=== PATIENT | male | born 1955 | race Caucasian/White ===

== ENCOUNTER 2016-10-21 20:18 | Emergency (ER) | payer BC ==
[~2016-10-21] VITALS: Ht 175.3 cm; Wt 82.6 kg
[~2016-10-21 20:18] MED LIST: AMIT-46 PO
--- OUTSIDE RECORDS SUMMARY | 2016-10-21 20:23 | XMS REPORT ---
Author Author Leticia Burciaga Organization eClinicalWorks Address Unknown Phone Unavailable Care Team Providers Care Cleat Maker Name Role Phone Leticia Burciaga CP Unavailable Allergies, Adverse Reactions, Alerts Substance Reaction Event Type N.K.D.A. Info Not Available Non Drug Allergy Problems Problem Type Condition Code Onset Dates Condition Status Assessment Sprain of unspecified site of right knee, initial encounter S83.91XA Active Assessment Asplenia (congenital) Q89.01 Active Problem Asplenia (congenital) Q89.01 Active Medications Medication Code System Code Instructions Start Date End Date Status Dosage Tylenol [facility] [address]-17 325 MG Orally every 6 hrs 1 tablet as needed Amitriptyline HCl [facility] [address]-55 25 MG Orally Once a day 1 tablet at bedtime Procedures Procedure Coding System Code Date OFFICE VISIT, EST-LOW COMPLEXITY (15 MIN.) CPT-4 18381 November 15, 2015 Vital Signs Date/Time: November 15, 2015 Temperature 98.3 F Height 69.5 in Weight 189.8 lbs Blood Pressure Diastolic 83 mm Hg Blood Pressure Systolic 130 mm Hg Cardiac Monitoring Heart Rate 81 /min BMI 27.62 Index Respiratory Rate 16 /min Results No Known Results Summary Purpose eClinicalWorks Submission
--- OUTSIDE RECORDS SUMMARY | 2016-10-21 20:23 | XMS REPORT ---
Author Author Dora Brunson [facility] eClinicalWorks Address Unknown Phone Unavailable Care Team Providers Care Biometry Teacher Name Role Phone Dora Brunson Unavailable Allergies No Known Allergies Problems Problem Type Condition ICD-9 Code Onset Dates Condition Status Assessment Need for prophylactic vaccination against streptococcus pneumoniae (pneumococcus) V03.82 Active Assessment Need for prophylactic vaccination and inoculation, Influenza V04.81 Active Medications Medication Code System Code Instructions Start Date End Date Status Dosage Amitriptyline HCl [facility] [address]-29 25 MG Orally Once a day Active 1 tablet at bedtime Procedures Procedure Coding System Code Date ADMINISTRATION, 1ST IMMUNIZATION CPT-4 15739 Jun 29, 2014 PNEUMOCOCOCCAL CONJUGATE VACCINE CPT-4 76269 Jun 29, 2014 FLU VACCINE NO PRESERV 3 & > CPT-4 97850 Jun 29, 2014 OFFICE VISIT, EST-BRIEF (5 MIN.) CPT-4 22927 Jun 29, 2014 ADMINISTRATION, EA ADDL IMMUNIZATION CPT-4 88374 Jun 29, 2014 Vital Signs Date/Time: Jun 29, 2014 Height 69.5 inches Weight 191.25 lbs Temperature 98.7 F Respiratory Rate 16 per Minute Blood Pressure Diastolic 80 mm Hg Blood Pressure Systolic 120 mm Hg BMI 27.83 Index Results No Known Results Immunizations Vaccine Administration Date Influenza shot 4 y.o. and older Jun 29, 2014 Pneumo 13 (Prevnar)(child)(adult) Jun 29, 2014 Summary Purpose eClinicalWorks Submission
--- OUTSIDE RECORDS SUMMARY | 2016-10-21 20:23 | XMS REPORT ---
Author Author Dora Brunson [facility] eClinicalWorks Address Unknown Phone Unavailable Care Team Providers Care Wood Die Maker Name Role Phone Dora Brunson Unavailable Allergies No Known Allergies Problems Problem Type Condition Code Onset Dates Condition Status Problem Asplenia (congenital) Q89.01 Active Medications No Known Medications Results No Known Results Summary Purpose eClinicalWorks Submission
--- OUTSIDE RECORDS SUMMARY | 2016-10-21 20:23 | XMS REPORT | Continuity of Care Document ---
Author Author [facility] Organization [facility] Address Unknown Phone Unavailable Support Name Relationship Address Phone MORE HEALY APRN Caregiver Yuriy [place] [address] NEMESIO CHRISTOPHER MD Caregiver [facility]GERY [address] [place] [address] , [address] [place] [address] STANTON EDOUARD Next Of Kin [address] [place] [address] Insurance Providers Payer Name Policy Number Subscriber Name Relationship [facility] [id number] Diego Edouard 19 Self Advance Directives Directive Response Recorded Date/Time Ordered Resuscitation Status Full Code 02/26/14 2:06pm Problems No known problems or medical conditions. Medications Medication Dose Route Sig Days/Qty Instructions Order Date Discontinued Date Status Amitriptyline Hcl 25 Mg PO BEDTIME 07/13/10 Active Social History Social History Problem Response Recorded Date/Time Smoking Status Former smoker 03/01/2014 8:06am Chewing Tobacco Status No 02/26/2014 1:51pm Hx Substance Use No 02/26/2014 1:51pm Hx Alcohol Use No 03/01/2014 8:06am Has the pt used tobacco in the last 12 months No 03/01/2014 8:06am Hospital Discharge Instructions No hospital discharge instructions. Plan of Care No plan of care. Functional Status No functional status results. Allergies, Adverse Reactions, Alerts Allergen Type Severity Reaction Status Last Updated No Known Allergies Active 07/13/10 Immunizations Name Given Type Hx Influenza Vaccination Y FALL 2012 Historical Hx Pneumococcal Vaccination No Historical Hx Influenza Vaccination Y FALL 2012 Historical Vital Signs Acute Vital Signs Vital Response Date/Time Temperature (Fahrenheit) 97.6 deg F (96.8 - 99.1) Temperature (Calculated Celsius) 36.10919 degrees C (36.0 - 37.3) Temperature Source Temporal Pulse Rate (adult) 92 bpm (60 - 100) Respiratory Rate 16 breaths/min (10 - 20) O2 Sat by Pulse Oximetry 96 % (90 - 100) Blood Pressure 134/87 mm Hg Blood Pressure Source Automatic Cuff Height 5 ft 9 in Weight 182 lb Body Mass Index 26.0 kg/m^2 Results Test Source Date Result Interp. Ref. Range Comments Alanine Aminotransferase (ALT/SGPT) February 22, 2014 3:54pm 36 U/L N 21-72 Albumin February 22, 2014 3:54pm 4.4 G/DL N 3.5-5.0 Albumin/Globulin Ratio February 22, 2014 3:54pm 1.5 RATIO N 1.1-2.2 Alkaline Phosphatase February 22, 2014 3:54pm 86 U/L N 38-126 Anion Gap February 22, 2014 3:54pm 11 MEQ/L N 5-15 Aspartate Amino Transf (AST/SGOT) February 22, 2014 3:54pm 29 U/L N 17-59 BUN/Creatinine Ratio February 22, 2014 3:54pm 22 RATIO N 6-26 Basophils # (Auto) February 22, 2014 3:54pm 0.1 T/MM3 N 0-0.2 Basophils (%) (Auto) February 22, 2014 3:54pm 0.6 % N 0-2 Blood Urea Nitrogen February 22, 2014 3:54pm 20.0 MG/DL N 9-20 Calcium Level February 22, 2014 3:54pm 9.4 MG/DL N 8.4-10.2 Calculated Osmolality February 22, 2014 3:54pm 276 MOSM/KG N 261-280 Carbon Dioxide Level February 22, 2014 3:54pm 31 MEQ/L H 22-30 Chloride Level February 22, 2014 3:54pm 100 MEQ/L N 98-107 Creatinine February 22, 2014 3:54pm 0.9 MG/DL N 0.8-1.5 Eosinophils # (Auto) February 22, 2014 3:54pm 0.2 T/MM3 N 0-0.5 Eosinophils (%) (Auto) February 22, 2014 3:54pm 2.7 % N 0-4 Globulin February 22, 2014 3:54pm 3.0 G/DL N 2.4-3.6 Glucose Level February 22, 2014 3:54pm 98 MG/DL N 75-110 Hematocrit February 22, 2014 3:54pm 43.2 % N 41-53 Hemoglobin February 22, 2014 3:54pm 14.9 GM/DL N 13.5-17.5 Lactate Dehydrogenase February 22, 2014 3:54pm 408 U/L N 313-618 Lymphocytes # (Auto) February 22, 2014 3:54pm 2.5 T/MM3 N 1-4.8 Lymphocytes (%) (Auto) February 22, 2014 3:54pm 29.3 % N 23-45 Mean Corpuscular Hemoglobin February 22, 2014 3:54pm 31.4 UUG N 26-34 Mean Corpuscular Hemoglobin Concent February 22, 2014 3:54pm 34.5 GM/DL N 31 -37 Mean Corpuscular Volume February 22, 2014 3:54pm 91.1 UM3 N 80-100 Mean Platelet Volume February 22, 2014 3:54pm 9.0 UM3 L 9.4-12.4 Monocytes # (Auto) February 22, 2014 3:54pm 1.0 T/MM3 H 0-0.8 Monocytes (%) (Auto) February 22, 2014 3:54pm 11.8 % H 0-9.0 Neutrophils # (Auto) February 22, 2014 3:54pm 4.8 T/MM3 N 1.8-7.7 Neutrophils (%) (Auto) February 22, 2014 3:54pm 55.5 % N 33-66 Platelet Count February 22, 2014 3:54pm 361 T/MM3 N 130-400 Potassium Level February 22, 2014 3:54pm 4.4 MEQ/L N 3.6-5 RDW Standard Deviation February 22, 2014 3:54pm 44.2 FL N 36.9-50.2 Red Blood Count February 22, 2014 3:54pm 4.74 M/MM3 N 4.50-5.90 Sodium Level February 22, 2014 3:54pm 142 MEQ/L N 134-144 Total Bilirubin February 22, 2014 3:54pm 0.30 MG/DL N 0.20-1.30 Total Protein February 22, 2014 3:54pm 7.4 G/DL N 6.3-8.2 White Blood Count February 22, 2014 3:54pm 8.6 T/MM3 N 4.5-11.0 Chemistry Specimen Hemolysis February 22, 2014 3:54pm < 15 0-25 0-25: No Hemolysis.26-70: Slight Hemolysis - can falsely elevate K and Urine Protein. 71-285: Moderate Hemolysis - can falsely elevate K, Troponin I, CA 19-9, PTH, CSF GLucose, and Urine Protein, and can falsely decrease Phenytoin. 286-999: Gross Hemolysis - can falsely elevate K, Troponin I, CA 19-9, PTH, CSF Glucose, and Urine Protine, and can falsely decrease Phenytoin. Recommend specimen recollection. Lab Scanned Report February 22, 2014 5:45pm LAB TEST FORM REQUEST [id number] - Turbidity February 22, 2014 3:54pm < 20 0-20 Glomerular Filtration Rate Calc February 22, 2014 3:54pm 87 - Immature Granulocyte # (Auto) February 22, 2014 3:54pm 0.01 T/MM3 N 0.00- 0.03 Immature Granulocyte % (Auto) February 22, 2014 3:54pm 0.1 % N 0.0-0.5 Icterus Index February 22, 2014 3:54pm < 2 0-7 Name: DIEGO EDOUARD Unit #: [id number] : 1955 Sex: M Loc / Svc: MORRIS DOS: 02/24/14 Signed Report #: [id number] DIAGNOSTIC IMAGING REPORT TYPE OF EXAM: CT CHEST/ABD/PELVIS WC Dictated By: MAMIE WINSTON MD INDICATION: ITS.REASON: 172.3 CT HEAD W/WO CONTRAST: Comparison: None Technique: Axial CT images through the head were performed without and with IV contrast. Contrast: Omnipaque 300 120 mL FINDINGS: The ventricles are of normal size, shape, and contour for the patient 's age. The brainstem, cerebellum, and cerebral hemispheres have a normal morphology and CT attenuation. No hemorrhage, mass effect, mass lesions, or edema is evident. No areas of abnormal enhancement are seen. The visualized portions of the skull base, sinuses, and calvarium demonstrate no abnormality. 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 IMPRESSION: Unremarkable head CT for the patient's age, both before and after contrast. No evidence of intracranial metastatic disease. Comparison: None Technique: Axial CT images were performed through the neck, chest, abdomen and pelvis after the administration of intravenous contrast. Coronal and sagittal reformats of the neck Contrast: Omnipaque 300 120 mL Findings: Neck: There are scattered small bilateral cervical level IIA, IIB and VA lymph nodes present. None of these appears abnormally enlarged or pathologically enhancing. There is no significant asymmetry of left versus right in the size or distribution of nodes. No mucosal based mass lesions. Some artifact from dental restorations. The airway is widely patent. Thyroid gland is within normal limits. Parapharyngeal fat spaces are normal. Great vessels show no significant abnormality. Chest: The lungs are clear. No worrisome pulmonary nodule or mass. No pleural effusion or pneumothorax. The central airways are patent. The right gland is within normal limits. Scattered bilateral axillary nodes are seen but are not pathologically enlarged. Most of these demonstrate normal fatty lilly. The largest in the right axilla measures 0.8 cm short axis on axial image number 24. Heart and great vessels appear normal. Small mediastinal nodes are present, but again not abnormally enlarged. No hilar adenopathy. Abdomen/pelvis: The liver is normal. The gallbladder is decompressed. Spleen is absent. The pancreas, adrenal glands and kidneys are normal. No mesenteric or retroperitoneal adenopathy. No pelvic adenopathy. No free fluid. Bladder is within normal limits. Prostate and rectum are unremarkable. Small and large bowel show no significant abnormality. Bone windows are within normal limits. Impression: No evidence of metastatic disease in the neck, chest, abdomen or pelvis. . Procedures Procedure Status Date Provider(s) Excision of lesion completed 03/01/14 NEMESIO CHRISTOPHER MD Encounters Encounter Location Date/Time Registered [facility] 02/24/14 11:30am Registered [facility] 02/22/14 3:50pm
--- OUTSIDE RECORDS SUMMARY | 2016-10-21 20:23 | XMS REPORT | Referral Summary ---
Author Author [facility] Organization [facility] Address Unknown Phone Unavailable Care Team Providers Care Land Inspector Name Role Phone No PCP, Pt States Primary Care Physician [phone] Encounter VC Date(s): 04/14/15 - 04/14/15 [facility] [address] [place] [address] [place] [id number] Discharge Disposition: 01-Home or Self Care Attending Physician: Buster Gabriel JR, MD Admitting Physician: Buster Gabriel JR, MD Vital Signs No data available for this section Problem List No data available for this section Allergies, Adverse Reactions, Alerts No data available for this section Medications amitriptyline 25 mg oral tablet 25 mg 1 tabs, Oral, Bedtime (once a day), # 90 tabs, 0 Refill(s), Pharmacy: [facility], NEEDS TO SEE DR. GABRIEL IN JULY 2014 FOR RECHECK FOR FURTHER REFILLS., 1 tabs Oral Bedtime (once a day),x90 days Start Date: 09/29/15 Stop Date: 12/28/15 Status: Ordered Results No data available for this section Immunizations Vaccine Date Refusal Reason hepatitis A adult vaccine 04/11/09 hepatitis B adult vaccine 09/23/09 hepatitis B adult vaccine 03/11/09 hepatitis B adult vaccine 03/11/09 influenza virus vaccine, live 05/02/11 Procedures No data available for this section Social History No data available for this section Assessment and Plan Extracted from: Title: Ambulatory Patient Education Author: Buster Gabriel JR, MD Date : 04/14/15 Follow Up With: Where: When: Pt States No PCP [address] [facility] [place] [phone] Business (1) Within 3 to 5 days Comments: Follow Up With: Where: When: Buster Gabriel [address] [place] [address] Drive; [facility] [place] [address] Business (1) In 6 months 10/13/2015 Comments: Extracted from: Title: Office Visit Note Author: Buster Gabriel JR, MD Date: 04/14/15 Assessment/Plan family history of prostate cancer, 2 uncles on his mother's side History of chronic interstitial cystitis. Continue amitriptyline 25 mg at bedtime. Continue following the instructions regarding reducing intake of caffeine and highly acidic and highly spiced food. I would like to see him again in 6 months, PSA a week before next visit or to come and see sooner if having troubles with urination.
--- OUTSIDE RECORDS SUMMARY | 2016-10-21 20:23 | XMS REPORT | Continuity of Care Document ---
Author Author Siva Belcher [place], [facility] Address Unknown Phone Unavailable Payers Payer name Insurance type Covered libertarian ID Authorization(s) Unknown Problems Condition Effective Dates (start - stop) Clinical Status BPH - Asymptomatic Family history of malignant neoplasm of prostate - *Routine Chronic interstitial cystitis - *Controlled BPH - Asymptomatic Family history of malignant neoplasm of prostate - *Routine FM HX GENITAL MALIG NOS - FM HX PROSTATE MALIG - CHR INTERSTIT CYSTITIS - HYPERTONICITY OF BLADDER - BPH W URINARY OBS/LUTS - - Family History Family Member Diagnosis Age At Onset Status Unknown Social History Social History Element Description Quantity Unknown Allergies, Adverse Reactions, Alerts Substance Reaction Severity Status Unknown Medications Medication Instructions Dosage Effective Dates (start - stop) Status amitriptyline 25 mg tablet take 1 tablet (25MG) by oral route every day at bedtime 25 MG - Active Immunizations Vaccine Date Status Comments flu (split) (3 yrs or older) completed pneumo (2 yrs or older) (PPV23) completed - Completed reason: Previously Given hep B (adult) completed - Completed reason: Previously given hep B (adult) completed - Completed reason: Previously given hep A (adult) completed - Completed reason: Previously given meningococcal completed - Completed reason: Previously Given hep B (adult) completed - Completed reason: Previously given Results Test Name Date and Time Measure Units Reference Range Abnormal Flag Comments Unknown Vital Signs Date / Time: Height Weight Pulse Rate Blood Pressure Temperature /10:36:00 186.00 lbs 85 /min 135/77 mm[Hg] Procedures Procedure Date Unknown Encounters Encounter Location Date Patient Visit [facility] Patient Visit [facility] Patient Visit Conversion Patient Visit [facility] Patient Visit [facility] Advance Directives Directive Effective Date Unknown
--- OUTSIDE RECORDS SUMMARY | 2016-10-21 20:23 | XMS REPORT ---
Author Author Mat Ham Organization eClinicalWorks Address Unknown Phone Unavailable Care Team Providers Care Epic Beacon Analyst Name Role Phone Mat Ham CP Unavailable Allergies, Adverse Reactions, Alerts Substance Reaction Event Type N.K.D.A. Info Not Available Non Drug Allergy Problems Problem Type Condition Code Onset Dates Condition Status Assessment Encounter for dental examination and cleaning without abnormal findings Z01.20 Active Problem Asplenia (congenital) Q89.01 Active Medications Medication Code System Code Instructions Start Date End Date Status Dosage Amitriptyline HCl [facility] [address]-31 25 MG Orally Once a day 1 tablet at bedtime Tylenol [facility] [address]-21 325 MG Orally every 6 hrs 1 tablet as needed Procedures Procedure Coding System Code Date LTD ORAL EVALUATION - PROBLEM FOCUS CPT-4 D0140 Feb 28, 2016 [facility] [place] DENTAL PAIN-MINOR PROC CPT-4 D9110 Feb 28, 2016 INTRAORL-PERIAPICAL 1 FILM [id number] CPT-4 D0220 Feb 28, 2016 Results No Known Results Summary Purpose eClinicalWorks Submission
--- OUTSIDE RECORDS SUMMARY | 2016-10-21 20:23 | XMS REPORT ---
Author Author Mat Ham Organization eClinicalWorks Address Unknown Phone Unavailable Care Team Providers Care Public Health Microbiologist Name Role Phone Mat Ham CP Unavailable Allergies No Known Allergies Problems Problem Type Condition Code Onset Dates Condition Status Assessment Encounter for dental examination and cleaning without abnormal findings Z01.20 Active Problem Asplenia (congenital) Q89.01 Active Medications Medication Code System Code Instructions Start Date End Date Status Dosage Tylenol [facility] [address]-70 325 MG Orally every 6 hrs 1 tablet as needed Amitriptyline HCl [facility] [address]-89 25 MG Orally Once a day 1 tablet at bedtime Procedures Procedure Coding System Code Date LTD ORAL EVALUATION - PROBLEM FOCUS CPT-4 D0140 November 24, 2015 [facility] [place] DENTAL PAIN-MINOR PROC CPT-4 D9110 November 24, 2015 Results No Known Results Summary Purpose eClinicalWorks Submission
--- OUTSIDE RECORDS SUMMARY | 2016-10-21 20:23 | XMS REPORT ---
Author Author Dora Brunson [facility] Address [address] [place], [place] [id number] Care Team Providers Care Medical Care Administrator Name Role Phone Dora Brunson Unavailable [phone] PROBLEMS Type Condition ICD9-CM Code VBX88-YI Code Onset Dates Condition Status SNOMED Code Problem Asplenia (congenital) Q89.01 Active [id number] ALLERGIES Unknown Allergies SOCIAL HISTORY No smoking Hx information available PLAN OF CARE VITAL SIGNS MEDICATIONS Medication Instructions Dosage Frequency Start Date End Date Duration Status Amitriptyline HCl 25 MG Orally Once a day 1 tablet at bedtime 24h 30 day(s) Active RESULTS No Results PROCEDURES No Known procedures IMMUNIZATIONS No Known Immunizations
--- OUTSIDE RECORDS SUMMARY | 2016-10-21 20:23 | XMS REPORT | Continuity of Care Document ---
Author Author [facility] Organization [facility] Address Unknown Phone Unavailable Allergies Medications Problems Procedures Results Encounters ACCT No. Visit Date/Time Discharge Status Pt. Type Provider Facility Loc./Unit Complaint [id number] 07/02/2013 08:19:00 07/02/2013 23 :59:59 C[facility] Outpatient
--- OUTSIDE RECORDS SUMMARY | 2016-10-21 20:23 | XMS REPORT ---
Author Author Dora Brunson [facility] eClinicalWorks Address Unknown Phone Unavailable Care Team Providers Care Preform Plate Maker Name Role Phone Dora Brunson CP Unavailable Allergies, Adverse Reactions, Alerts Substance Reaction Event Type N.K.D.A. 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 Assessment Encounter for immunization Z23 Active Medications Medication Code System Code Instructions Start Date End Date Status Dosage Amitriptyline HCl [facility] [address]-49 25 MG Orally Once a day 1 tablet at bedtime Procedures Procedure Coding System Code Date ADMINISTRATION, 1ST IMMUNIZATION CPT-4 84696 May 06, 2015 FLU VACCINE NO PRESERV 3 & > CPT-4 64153 May 06, 2015 PNEUMOCOCCAL VACCINE CPT-4 39693 May 06, 2015 DUMMY CODE FOR NURSE VISIT CPT-4 DUMMY May 06, 2015 Vital Signs Date/Time: May 06, 2015 Height 69.5 in Weight 186 lbs Temperature 98.6 F Blood Pressure Diastolic 80 mm Hg Blood Pressure Systolic 120 mm Hg Cardiac Monitoring Heart Rate 70 /min BMI 27.07 Index Respiratory Rate 16 /min Results No Known Results Immunizations Vaccine Administration Date Pneumovax 23 (Adult) May 06, 2015 Influenza shot 3 y.o. and older May 06, 2015 Summary Purpose eClinicalWorks Submission
[2016-10-21 20:37] VITALS: Ht 175.3 cm; Wt 82.6 kg
--- NOTE | 2016-10-21 21:20 | ERPDOC ---
Departure Disposition Decision Date: Oct 21, 2016 Disposition Decision Time: 22:49 Disposition: 01 DISCHARGED HOME, SELF-CARE Impression Impression Impression: Primary Impression: Colitis Severity: Moderate Condition: Stable Seen By: Physician only Referrals: MORE HEALY APRN (Family) [facility] Patient Instructions: Colitis (ED) Problems/Meds/Labs Reviewed?: Yes Medications reviewed and manag: Yes Departure Forms: Return to Work/School Permit Return to Work/School Date: Oct 23, 2016 Follow up care ordered?: Yes Mental Status: Alert, Oriented Scripts Tramadol HCl (Tramadol HCl) 50 Mg Tablet 1-2 TAB PO Q6H Y for PAIN, #20 TAB Prov: AJCINTA CHAU MD 10/21/16 HPI - Abdominal Pain General Chief Complaint: Abdominal Pain Stated Complaint: ABD PAIN X 4 DAYS Time Seen by Provider: 21:19 Source: patient, family History/Exam Limitations: no limitations HPI - Abdominal Pain Initial Comments Patient is a 61-year-old male presents emergency room for evaluation of lower abdominal pain/cramping. Patient has now been going on for 4 days, waxes and wanes usually worse after eating. Patient's had fevers at home as high as 101. Patient mild nausea no vomiting, decided tonight to present to the ER for evaluation Occurred At: home Onset: Gradual, Getting worse Duration: other (4 days) Pain Scale: Now & Worst: 4/10 Location: RLQ Allergies: Coded Allergies: No Known Allergies (Unverified , 10/21/16) Past History Past Medical History Metabolic: cancer (melanoma) ENMT: sleep apnea Male: other (interstitial cystitis) Surgical History General: exploratory laparotomy (splenectomy) Vaccines Hx Influenza Vaccination: Yes (FALL 2012) Hx Pneumococcal Vaccination: No Social History Smoking Status: Never smoker Substance Use Type: does not use Alcohol Intake: none Review of Systems Constitutional Constitutional: DENIES: appetite decrease, chills, dizziness, fever, weakness Eyes Vision: DENIES: double vision, loss of visual edwards ENMT Sinuses: DENIES: congestion, rhinorrhea Cardiovascular Cardiac: DENIES: chest pain, dyspnea on exertion Pulmonary Respiratory: DENIES: cough, dyspnea, sputum, tachypnea GI Upper Abdomen: nausea, DENIES: pain, vomiting Lower Abdomen: pain, DENIES: constipation, diarrhea General: DENIES: frequency, urgency Musculoskeletal General: DENIES: cramps, pain, weakness Integumentary Skin: DENIES: color change, itching, rash Endocrine Endocrine: DENIES: heat/cold intolerance Hematologic/Lymphatic Hematologic/Lymphatic: DENIES: anemia Physical Exam General General Nourishment: well nourished, well developed General Body Habitus: well groomed Vitals and Pain First Documented Vital Signs Date Time Temp Pulse Resp B/P Pulse Ox O2 Delivery O2 Flow Rate FiO2 10/21/16 20:37 98.7 93 16 101/70 96 Room Air Weight: Kilograms: 82.600 Height (feet): 5 Height (inches): 9.00 Triage Pain Scale: RN VS reviewed by Provider: Yes Eyes (brief) Eyes Brief: found: EOMI ENMT (brief) ENMT Brief: FOUND: mucosa moist, normal dentition, NOT FOUND: nasal erythema, pharnyx erythema, tonsillar deviation Neck (brief) Neck: NOT FOUND: adenopathy, spasm, tenderness Respiratory (brief) Respiratory: FOUND: clear all edwards, equal bilaterally, NOT FOUND: rales, wheezes Cardiovascular (brief) Cardiac: FOUND: regular rate, regular rhythm Capillary Refill: <2 sec Abdomen Palpation: FOUND: McBurney's point tender, soft, tender (right lower quadrant tenderness), voluntary guarding, NOT FOUND: Obturator sign, Psoas sign, hepatomegaly, hernia, involuntary guarding, rebound, splenomegaly Auscultation: FOUND: normoactive Lymphatic (brief) Lymphatic Brief: NOT FOUND: adenopathy Musculoskeletal (brief) Musculoskeletal Brief: NOT FOUND: spasm, tenderness Integumentary (brief) Integumentary Brief: FOUND: dry, pink, warm, NOT FOUND: rash Neurologic (brief) Neurological Brief: FOUND: CN w/o gross def to obs, motor-no gross deficits, sensory-no gross deficits Psychiatric (brief) Psychiatric Brief: FOUND: alert, oriented Differential Diagnoses Considering: Appendicitis, Biliary Colic, Bowel Obstruction, Cholecystitis, Constipation, Crohn's, Diverticulitis, Gastroenteritis, IBS, Ileus, Neoplasm, Pancreatitis, Pyelonephritis, Renal Colic, Ulcer, UTI, Volvulus Progress Results/Orders Orders Procedure Category Date Status Time Iv Lock (Ed Only) EDM 10/21/16 Transmitted 21:26 Cbc W/Auto LAB 10/21/16 Complete Diff-Reflex Manual 21:26 Cmp - Comprehensive LAB 10/21/16 Complete Metabolic 21:26 Lipase LAB 10/21/16 Complete 21:26 Normal Saline (Normal PHA 10/21/16 Complete Saline Iv) 21:30 Ondansetron Inj PHA 10/21/16 Complete (Zofran) 21:30 Morphine Sulfate PHA 10/21/16 Complete (Morphine) 21:30 Ct Abd/Pelvis CT 10/21/16 Taken W/Contrast Only 21:58 Iohexol (Omnipaque) PHA 10/21/16 Complete 22:05 Normal Saline (Ns) PHA 10/21/16 Complete 22:05 Saline Flush (Iv PHA 10/21/16 Complete Flush) 22:05 UA, LAB 10/21/16 Complete Dip&Micro(Complete) & 22:21 Tramadol (Prepack) PHA 10/21/16 Complete (Ultram (Prepack)) 23:00 Ondansetron Odt PHA 10/21/16 Complete (Prepack) (Zofran Odt 23:00 Lab Results Laboratory Tests Test 10/21/16 21:43 10/21/16 22:21 White Blood Count 11.4T/MM3 Red Blood Count 4.83M/MM3 Hemoglobin 14.7GM/DL Hematocrit 43.1% Mean Corpuscular Volume 89.2UM3 Mean Corpuscular Hemoglobin 30.4UUG Mean Corpuscular Hemoglobin Concent 34.1GM/DL RDW Standard Deviation 44.4FL Platelet Count 389T/MM3 Mean Platelet Volume 9.7UM3 Immature Granulocyte % (Auto) % Neutrophils (%) (Auto) % Lymphocytes (%) (Auto) % Monocytes (%) (Auto) % Eosinophils (%) (Auto) % Basophils (%) (Auto) % Absolute Immature Granulocyte (auto T/MM3 Absolute Neutrophils (auto) T/MM3 Absolute Lymphocytes (auto) T/MM3 Absolute Monocytes (auto) T/MM3 Absolute Eosinophils (auto) T/MM3 Absolute Basophils (auto) T/MM3 Neutrophils % (Manual) 51.0% Band Neutrophils % 2.0% Lymphocytes % (Manual) 29.0% Monocytes % (Manual) 12.0% Eosinophils % (Manual) 4.0% Basophils % (Manual) 2.0% Absolute Neutrophils (Manual) 5.8T/MM3 Band Neutrophils # 0.2T/MM3 Lymphocytes # (Manual) 3.3T/MM3 Monocytes # (Manual) 1.4T/MM3 Eosinophils # (Manual) 0.5T/MM3 Basophils # (Manual) 0.2T/MM3 Red Cell Morphology Comment Normal Turbidity < 20 Sodium Level 140MEQ/L Potassium Level 4.1MEQ/L Chloride Level 101MEQ/L Carbon Dioxide Level 26MEQ/L Anion Gap 13MEQ/L Blood Urea Nitrogen 19.0MG/DL Creatinine 0.8MG/DL Glomerular Filtration Rate Calc 99 BUN/Creatinine Ratio 24RATIO Glucose Level 97MG/DL Calculated Osmolality 271MOSM/KG Calcium Level 9.1MG/DL Total Bilirubin 0.50MG/DL Icterus Index < 2 Aspartate Amino Transf (AST/SGOT) 24U/L Alanine Aminotransferase (ALT/SGPT) 39U/L Alkaline Phosphatase 81U/L Total Protein 7.4G/DL Albumin 3.8G/DL Globulin 3.6G/DL Albumin/Globulin Ratio 1.1RATIO Lipase 61U/L Chemistry Specimen Hemolysis < 15 Urine Collection Type Voided-not cc-midstr Urine Color Yellow Urine Turbidity Clear Urine pH 5.5 Urine Specific Drummond 1.010 Urine Protein Negative Urine Glucose (UA) Negative Urine Ketones Negative Urine Blood 2+ Urine Nitrite Negative Urine Bilirubin Negative Urine Urobilinogen 0.2EU/DL Urine Leukocyte Esterase Negative Urine RBC 3-5/HPF Urine WBC None seen/HPF Urine Bacteria Trace Urine Mucus Present Urine Culture Indicated Cult not indicated Medications Current ED Medications Sodium Chloride (Normal Saline IV) 1,000 ml @ 999 mls/hr Q1H1M ONCE IV Last administered on 10/21/16 21:38; Start 10/21/16 at 21:30; Stop 10/21/16 at 22:30 ; Status DC Ondansetron HCl (Zofran) 4 mg O ONCE IV Last administered on 10/21/16 21:40; Start 10/21/16 at 21:30; Stop 10/21/16 at 21:31; Status DC Morphine Sulfate (Morphine) 2 mg O ONCE IV Last administered on 10/21/16 21: 41; Start 10/21/16 at 21:30; Stop 10/21/16 at 21:31; Status DC Iohexol 1 bottle 1 bottle STK-MED ONCE .ROUTE ; Start 10/21/16 at 22:05; Stop at 22:06; Status DC Sodium Chloride (NS) 100 ml @ As Directed STK-MED ONCE .ROUTE ; Start 10/21/16 at 22:05; Stop 10/21/16 at 22:06; Status DC Sodium Chloride (Iv Flush) 10 ml STK-MED ONCE .ROUTE ; Start 10/21/16 at 22:05; Stop 10/21/16 at 22:06; Status DC Tramadol HCl (ULTRAM (PrePack)) 1 pack O ONCE SENT HOME Last administered on 23:18; Start 10/21/16 at 23:00; Stop 10/21/16 at 23:01; Status DC Ondansetron HCl (ZOFRAN ODT (PrePack)) 1 pack O ONCE SENT HOME Last administered on 10/21/16 23:17; Start 10/21/16 at 23:00; Stop 10/21/16 at 23:01 ; Status DC Progress Progress Discuss CT scan results with patient and family, given fevers and lymphocytic shift on CBC, suspect that he has a viral colitis. Conservative management with tramadol, follow-up with primary medical physician for reevaluation possible future colonoscopy CT CT : CT: Abd/Pelvis IV contrast Interpretation: Abnormal, Faxed Report (appendix normal, inflammatory changes in the right lower quadrant consistent with colitis/inflammatory neoplasm) JACINTA CHAU MD Oct 21, 2016 21:20
[2016-10-21] MEDS ORDERED: NORMAL SALINE 1,000 ML IV ONE (21:30)
[2016-10-21] MEDS ORDERED: MORPHINE SULFATE 2 MG SYRINGE IV ONE (21:30)
[2016-10-21] MEDS ORDERED: ONDANSETRON 4mg/2ml INJECTION IV ONE (21:30)
[2016-10-21 21:54] LABS: HCT - HEMATOCRIT 43.1 % (41-53); HGB - HEMOGLOBIN 14.7 GM/DL (13.5-17.5); MEAN CORPUSCULAR HGB 30.4 UUG (26-34); MEAN CORPUSCULAR HGB CONC(MCHC 34.1 GM/DL (31-37); MEAN CORPUSCULAR VOLUME 89.2 UM3 (80-100); MEAN PLATELET VOLUME 9.7 UM3 (9.4-12.4); RED BLOOD COUNT 4.83 M/MM3 (4.50-5.90); WBC - WHITE BLOOD COUNT 11.4 T/MM3 (4.5-11.0)
[2016-10-21 21:58] LABS: ALBUMIN 3.8 G/DL (3.5-5.0); ALBUMIN/GLOBULIN RATIO 1.1 RATIO (1.1-2.2); ALKALINE PHOSPHATASE 81 U/L (38-126); ALT (SGPT) 39 U/L (21-72); ANION GAP 13 MEQ/L (5-15); AST (SGOT) 24 U/L (17-59); BUN/CREATININE RATIO 24 RATIO (6-26); CALCIUM 9.1 MG/DL (8.4-10.2); CHLORIDE 101 MEQ/L (98-107); CO2 - CARBON DIOXIDE 26 MEQ/L (22-30); CREATININE 0.8 MG/DL (0.8-1.5); GLOMERULAR FILTRATION RATE 99; GLUCOSE 97 MG/DL (75-110); LIPASE 61 U/L (23-300); POTASSIUM 4.1 MEQ/L (3.6-5); SODIUM 140 MEQ/L (134-144); TOTAL PROTEIN 7.4 G/DL (6.3-8.2)
[2016-10-21] MEDS ORDERED: ACET-62 PO (22:04)
[2016-10-21] MEDS ORDERED: MULT-933 PO (22:04)
[2016-10-21] MEDS ORDERED: IOHEXOL 300 MG/ML 100ml INJECTION ONE (22:05)
[2016-10-21] MEDS ORDERED: IBUP-1724 PO (22:05)
[2016-10-21] MEDS ORDERED: SALINE FLUSH 10ml SYRINGE ONE (22:05)
[2016-10-21] MEDS ORDERED: NORMAL SALINE 100 ML ONE (22:05)
--- NOTE | 2016-10-21 22:08 | NUR ---
IMAGING PT TO IMAGING AT THIS TIME VIA CART.
[2016-10-21 22:10] LABS: BAND NEUTROPHILS # 0.2 T/MM3; BASOPHILS # (MANUAL) 0.2 T/MM3 (0-0.2); EOSINOPHILS # (MANUAL) 0.5 T/MM3 (0-0.5); LYMPHOCYTES # (MANUAL) 3.3 T/MM3 (1-4.8); MONOCYTES # (MANUAL) 1.4 T/MM3 (0-0.8); NEUTROPHILS #(MANUAL)-ABSOLUTE 5.8 T/MM3 (1.8-7.7)
--- NOTE | 2016-10-21 22:15 | NUR ---
IMAGING PT RETURN FROM IMAGING AT THIS TIME
--- NOTE | 2016-10-21 22:16 | NUR ---
BATHROOM PT AMBULATED TO BATHROOM. GAIT STABLE, NO SIGN OF DISTRESS. DENIES DIZZINESS/LIGHTHEADEDNESS. AT SIDE. URINE SAMPLE PROVIDED.
--- OUTSIDE RECORDS SUMMARY | 2016-10-21 22:17 | XMS REPORT | Continuity of Care Document ---
Author Author [facility] Organization [facility] Address Unknown Phone Unavailable Allergies Medications Problems Procedures Results Encounters ACCT No. Visit Date/Time Discharge Status Pt. Type Provider Facility Loc./Unit Complaint [id number] 07/02/2013 08:19:00 07/02/2013 23 :59:59 CLS Outpatient
--- OUTSIDE RECORDS SUMMARY | 2016-10-21 22:17 | XMS REPORT | Continuity of Care Document ---
Author Author [facility] Organization [facility] Address Unknown Phone Unavailable Support Name Relationship Address Phone MORE HEALY APRN Caregiver Yuriy [place] [address] NEMESIO CHRISTOPHER MD Caregiver [facility] [address] [place] [address] , [address] [place] [address] STANTON EDOUARD Next Of Kin [address] [place] [address] Insurance Providers Payer Name Policy Number Subscriber Name Relationship [facility] [id number] Diego Edouard 19 Self Advance Directives Directive [...] F (96.8 - 99.1) Temperature (Calculated Celsius) [phone] degrees C (36.0 - 37.3) Temperature Source [...] 22, 2014 5:45pm LAB TEST FORM REQUEST [id number] - Turbidity February 22, 2014 3:54pm < 20 0-20 Glomerular Filtration Rate Calc February 22, 2014 3:54pm 87 - Immature Granulocyte # (Auto) February 22, 2014 3:54pm 0.01 T/MM3 N 0.00- 0.03 Immature Granulocyte % (Auto) February 22, 2014 3:54pm 0.1 % N 0.0-0.5 Icterus Index February 22, 2014 3:54pm < 2 0-7 Name: DIEGO EDOUARD Unit #: [id number] : 1955 Sex: M Loc / Svc: [facility] DOS: 02/24/14 Signed Report #: [id number] DIAGNOSTIC IMAGING REPORT TYPE OF EXAM: CT [...] CHRISTOPHER MD Encounters Encounter Location Date/Time Registered [facility] 02/24/14 11:30am Registered [facility] 02/22/14 3:50pm
[2016-10-21 22:27] LABS: BLOOD, URINE 2+ (NEGATIVE); COLOR,URINE YELLOW (YELLOW); LEUKOCYTE ESTERASE ,URINE NEGATIVE (NEGATIVE); NITRITE,URINE NEGATIVE (NEGATIVE); UROBILINOGEN,URINE 0.2 EU/DL (NORMAL)
[2016-10-21 22:44] LABS: BACTERIA,URINE TRACE (NEGATIVE); MUCUS,URINE PRESENT; WBC,URINE NONE SEEN /HPF (0-5)
[2016-10-21] MEDS ORDERED: TRAM50TA4 PO (22:50)
[2016-10-21] MEDS ORDERED: TRAMADOL 50mg TAB #6 (PrePack) SENT HOME ONE (23:00)
[2016-10-21] MEDS ORDERED: ONDANSETRON ODT 4mg #3 (PrePack) SENT HOME ONE (23:00)
[2016-10-21 23:23] VITALS: BP 107/65; PULSE 92; RESP 18; TEMP 98.7; O2SAT 96
--- NOTE | 2016-10-21 23:23 | NUR ---
DEPART PT GIVEN DI FOR COLITIS, TRAMADOL, ZOFRAN, AND F/U. PREPAK/RX PROVIDED FOR TRAMADOL AND ZOFRAN. PT AND SPOUSE VERBALIZE UNDERSTANDING OF DI. QUESTIONS ASKED/ANSWERED - DENY FURTHER QUESTIONS AT THIS TIME. IV SITE REMOVED. PERSONAL BELONGINGS GATHERED. PT DENIES PAIN/NAUSEA AT THIS TIME. PT AMBULATED/ESCORTED TO ED EXIT - GAIT STABLE, NO SIGN OF DISTRESS.
--- NOTE | 2016-10-22 09:12 | DI ---
Indication: ITS.REASON: right lower quadrant abdominal pain rule out appendicitis PROCEDURE: CT ABD/PELVIS W/CONTRAST ONLY: Encounter: Initial Comparison: None Technique: Axial CT images were performed through the abdomen and pelvis after the administration of intravenous contrast. Coronal and sagittal two-dimensional reformats. Automated Exposure Control and Iterative Reconstruction dose reducing techniques were utilized. Contrast: Omnipaque 300 100 mL Findings: The lung bases are clear. The liver, spleen, pancreas, adrenal glands, and kidneys appear unremarkable. The gallbladder satisfactory appearance. The right colon is abnormal. Specifically, the region of the cecum to the level of the mid ascending colon demonstrates significant wall thickening, pericolonic stranding, and regional adenopathy with multiple lymph nodes of 1 to 1.5 cm in size. The appendix appears to be unremarkable. The remainder of the colon demonstrates normal wall thickness. The prime consideration is that of neoplasm but in this patient who is acutely ill certainly focal colitis could have a similar appearance from an imaging standpoint. No adjacent abscess. The remainder of the bowel is unremarkable other than a few scattered diverticula. Great vessels unremarkable. Urinary bladder, ureters, and reproductive viscera normal. No free fluid or free air identified. Bone window review demonstrates mild age-related degenerative changes; no osseous aggressive abnormalities identified. Impression: Abnormal wall thickening of the cecum and ascending colon with regional adenopathy suggesting focal colitis or neoplasia. Clinical correlation with endoscopic assessment recommended. Findings in agreement with those rendered by [facility] at time of service. .
== END 2016-10-21 23:23 | disposition home or self-care (01) ==
LOC: ED 20:18
DX: K52.9 Noninfective gastroenteritis and colitis, unspecified (principal)
CPT/HCPCS: 74177; 80053; 81001; 83690; 85025; 96361; 96374; 96375; 99284; J2405; J7030; J7050; Q9967